=== PATIENT | female | born 1940 | race Caucasian/White ===

== ENCOUNTER 2020-07-27 08:29 | Day surgery (SDC) | payer OTHER ==
[~2020-07-27 08:29] MED LIST: ASPI81EC PO; ATEN50 PO; CALCIUM PO; LISI20 PO; NAPROXEN PO; POTCHL20ER PO; TYLENOL ARTHRITIS PO; VIT D PO
== END 2020-07-27 22:57 | disposition home or self-care (01) ==
LOC: MOI US 08:29 → MOI MAM 09:00 → MOI US 22:57
DX: C50.912 Malignant neoplasm of unspecified site of left female breast (principal); Z17.0 Estrogen receptor positive status [ER+]; Z79.82 Long term (current) use of aspirin; Z79.899 Other long term (current) drug therapy
CPT/HCPCS: 19083; 77065; 88305; 88342; 88360; A4648

== ENCOUNTER 2020-08-13 07:42 | Observation (INO) | payer OTHER ==
[~2020-08-13] VITALS: Ht 157.5 cm; Wt 101.4 kg
[~2020-08-13 07:42] MED LIST changes: +ASPI81CH PO; -ASPI81EC PO; +CALCIUM 600 +1 EA11 PO; +FOLI1; +FURO40 PO; +LEVSOD25 PO; +LOSA50 PO; +METO100ER PO; +ROSU10TA PO; +VITAMIN D310 MC4 PO
[2020-08-13] MEDS ORDERED: VENL75ER PO (08:12)
--- NOTE | 2020-08-13 08:41 | NUR ---
Ambulatory in Day Surgery. Surgical site prepped with 2% Chlorhexidine cloth wipe. [place] warming gown applied. History, Chart, Medications and Allergies reviewed before start of procedure.Lungs clear T/O to Auscultation. Patient confirms NPO status and agrees with scheduled surgery. Pre-Op teaching done. Pt verbalizes understanding. Patient States Post-Procedure ride home has been arranged. Patient reports completing Chlorhexadine shower X2 prior to admission to hospital.
--- NOTE | 2020-08-13 13:29 | NUR ---
AWAKE, EATING LUNCH, TOLERATING WELL, DENIES ANY PAIN, NAUSEA OR ANY DISCOMFORT AT THIS TIME, STATES "I'M FEELING PRETTY GOOD" DISCUSSED DRESSING AND WILBER DRAIN CARE.
--- NOTE | 2020-08-13 18:12 | NUR ---
DENIES ANY PAIN, OOB TO VOID, DSG C/D/I, TOLERATING REGULAR DIET WELL, WILBER CONT. TO HAVE SANGUINOUS-SERSANGUINOUS DRAINAGE, NO ACUTE CHANGES THIS SHIFT.
--- NOTE | 2020-08-14 06:18 | NUR ---
POD 1 S/P LEFT MASTECTOMY. PT VSS T/O NIGHT. DRESSING CDI, NO SIG BRIOSING/SWELLING NOTED. WILBER PUT OUT APPX 80 ML DARK PINK SSS DRNG. PAIN MGD W/1 NORCO W/REP RELIEF. PT ALTAGRACIA REG PO, NO N/V, IS VOIDING E/O DIFFICULTY. PT UP INDEP IN ROOM, ALTAGRACIA WELL. PLAN FOR DAUGHTER TO COME IN FOR WILBER DRAIN TEACHING PRIOR TO D/C.
[2020-08-14] MEDS ORDERED: HYDR1TAB94 PO (09:32)
--- NOTE | 2020-08-14 10:52 | NUR ---
1040 DISCHARGE INSTRUCTIONS REVIEWED WITH PATIENT AND HER DAUGHTER. PTS DUGHTER ABLE TO EMPTY DRAIN INDEPENDENTLY AND RECORD OUTPUT. PT AMBULATING INROOM, PAIN CONTROLLED, ALTAGRACIA PO FOOD AND FLUIDS WITHOUT NAUSEA. DISCHARGED TO HOME WITH HER DAUGHTER
== END 2020-08-14 10:40 | disposition home or self-care (01) ==
LOC: ORSCMMR 07:42 → ORD 09:00 → ORSCMMR 09:00 → SURS 11:10 → ORSCMMR 11:10 → SURS 11:56
PROVIDERS: ADMIT Surgery
DX: C50.412 Malignant neoplasm of upper-outer quadrant of left female breast (principal); I10 Essential (primary) hypertension; E03.9 Hypothyroidism, unspecified; Z17.0 Estrogen receptor positive status [ER+]; Z91.048 Other nonmedicinal substance allergy status; Z92.21 Personal history of antineoplastic chemotherapy; Z92.3 Personal history of irradiation; Z79.82 Long term (current) use of aspirin; Z79.899 Other long term (current) drug therapy
CPT/HCPCS: 88307; A9270; G0378; J0690; J1100; J2250; J2405; J2704; J3010; J7120

== ENCOUNTER 2024-11-15 14:41 | Observation (INO) | payer OTHER ==
[~2024-11-15] VITALS: Ht 167.6 cm; Wt 97.8 kg
[~2024-11-15 14:41] MED LIST changes: +HYDR1TAB94 PO; +VENL75ER PO
[2024-11-15 15:07] LABS: BASOPHILS ABSOLUTE AUTO 0.03 K/mm3 (0.00-0.23); BASOPHILS PERCENT AUTO 0 % (0-2); EOSINOPHILS ABSOLUTE AUTO 0.19 K/mm3 (0.00-0.68); EOSINOPHILS PERCENT AUTO 3 % (0-6); Hematocrit 35.6 % (33.0-51.0); Hemoglobin 11.9 g/dL (11.5-16.0); IMMATURE GRAN ABSOLUTE AUTO 0.05 K/mm3 (0.00-0.10); IMMATURE GRAN PERCENT AUTO 1 % (0-1); LYMPHOCYTES ABSOLUTE AUTO 1.57 K/mm3 (0.84-5.20); LYMPHOCYTES PERCENT AUTO 23 % (21-46); MONOCYTES ABSOLUTE AUTO 0.95 K/mm3 (0.16-1.47); MONOCYTES PERCENT AUTO 14 % (4-13); Mean Corpuscular HGB 32.8 pg (26.0-34.0); Mean Corpuscular HGB Conc 33.4 g/dL (31.5-36.5); Mean Corpuscular Volume 98 fL (80-100); Mean Platelet Volume 9.8 fL (9.1-12.4); NEUTROPHILS ABSOLUTE AUTO 3.93 K/mm3 (1.96-9.15); NEUTROPHILS PERCENT AUTO 59 % (41-73); Platelet Count 152 K/mm3 (150-400); RDW Standard Deviation 46.6 fL (35.1-46.3); Red Blood Cell Count 3.63 M/mm3 (3.80-5.20); White Blood Cell Count 6.72 K/mm3 (4.00-11.30)
[2024-11-15 15:23] LABS: Albumin, Blood 3.4 g/dL (3.4-5.0); Bilirubin, Total 0.6 mg/dL (0.1-1.0); Bun/Creatinine Ratio 17.5 (12.0-20.0); Calcium, Blood 8.5 mg/dL (8.5-10.1); Creatinine, Blood 1.14 mg/dL (0.40-1.00); Globulin, Blood 3.5 g/dL (2.2-4.0); Potassium, Blood 3.7 mmol/L (3.5-5.5); Total Protein, Blood 6.9 g/dL (6.4-8.2)
[2024-11-15] MEDS ORDERED: Ondansetron HCl 2 MG / ML 2ML Vial IV PRN (18:05)
[2024-11-15 18:50] VITALS: BP 157/130
[2024-11-15] MEDS ORDERED: FOSAMAX70 MG PO (19:25)
[2024-11-15] MEDS ORDERED: ROSUVASTATIN CA10 MG PO (19:29)
[2024-11-15] MEDS ORDERED: IBUP600 PO (19:30)
[2024-11-15 19:44] VITALS: BP 167/85
[2024-11-15 21:24] VITALS: BP 171/75
[2024-11-15] MEDS ORDERED: HydrALAZINE HCl 25 MG Tab PO ONE (21:50)
[2024-11-15 23:49] VITALS: BP 139/75
[2024-11-16 03:04] VITALS: BP 171/80
[2024-11-16 04:28] LABS: Hematocrit 34.8 % (33.0-51.0); Hemoglobin 11.6 g/dL (11.5-16.0); Mean Corpuscular HGB 32.9 pg (26.0-34.0); Mean Corpuscular HGB Conc 33.3 g/dL (31.5-36.5); Mean Corpuscular Volume 99 fL (80-100); Platelet Count 137 K/mm3 (150-400); RDW Coefficient Variation 13.2 % (11.7-14.2); RDW Standard Deviation 46.5 fL (35.1-46.3); Red Blood Cell Count 3.53 M/mm3 (3.80-5.20); White Blood Cell Count 5.24 K/mm3 (4.00-11.30)
[2024-11-16] MEDS ORDERED: HydrALAZINE HCl 20 MG / ML 1ML Vial IV PRN (04:45)
[2024-11-16 04:51] LABS: Bun/Creatinine Ratio 14.8 (12.0-20.0); Calcium, Blood 8.4 mg/dL (8.5-10.1); Creatinine, Blood 1.15 mg/dL (0.40-1.00); Magnesium, Blood 1.8 mg/dL (1.6-2.4); Potassium, Blood 3.3 mmol/L (3.5-5.5)
--- NOTE | 2024-11-16 05:09 | NUR ---
SHIFT SUMMARY THIS RN ASSUMED CARE OF PATIENT AT 1900. PT ARRIVED IN UNIT PRIOR TO SHIFT CHANGE. PT A&O X3-4, UNSURE OF SPECIFIC DATE BUT KNOWS MONTH/YEAR. ANSWERING ALL OTHER QUESTIONS APPROPRIATELY. PT AND DAUGHTER REPORT FORGETFULNESS AND POOR SHORT TERM MEMORY. BED ALARM USED T/O THIS SHIFT WITH PT SETTING OFF ALARM SEVERAL TIMES. HTN NOTED; MEDICATED PER EMAR AND MD ORDERS. SR ON MONITOR. DYSPNEA NOTED WITH EXERTION. ON RA. USING CANE TO AMBULATE WITH 1P SBA TO BATHROOM. BED IN LOWEST POSITION AND CALL LIGHT WITHIN REACH. [facility]
[2024-11-16 05:55] VITALS: BP 137/74
[2024-11-16] MEDS ORDERED: Levothyroxine Sodium 0.025 MG Tab PO SCH (06:00)
[2024-11-16 07:40] VITALS: BP 149/77
--- NOTE | 2024-11-16 07:52 | NUR ---
AM NOTE PT ALERT, ORIENTED X4; CALM AND COOPERATIVE WITH CARE. PT UP IN CHAIR WITH SBA AND CANE. PT DENIES PAIN, CHEST PAIN/PRESSURE, NAUSEA, DIZZINESS AND NUMB/TINGLING. PT SOB WITH EXERTION, SPO2 >94% ON RA, BREATHING EVEN AND UNLABORED, LS DIM T/O. TELE SINUS 60'S, BP ELEVATED. EDEMA NOTED TO BLE. ABD SOFT, NONTENDER, +BT. SCATTERED SCABS AND BRUISING NOTED. OTHER VSS. CALL LIGHT WITHIN REACH.
[2024-11-16] MEDS ORDERED: Furosemide 40 MG Tab PO SCH (09:00)
[2024-11-16] MEDS ORDERED: Aspirin 81 MG Chew PO SCH (09:00)
[2024-11-16] MEDS ORDERED: Atorvastatin 40 MG Tab PO SCH (09:00)
[2024-11-16] MEDS ORDERED: Enoxaparin 40 MG/0.4 ML SYR SC SCH (09:00)
[2024-11-16] MEDS ORDERED: Furosemide 10 MG/ML 4ML Vial IV ONE (09:00)
[2024-11-16] MEDS ORDERED: Metoprolol Succinate 50 MG TABCR PO SCH (09:00)
[2024-11-16] MEDS ORDERED: Losartan Potassium 50 MG Tab PO SCH (09:00)
[2024-11-16] MEDS ORDERED: Potassium Chloride 20 MEQ TabCR PO ONE (09:00)
[2024-11-16 12:10] VITALS: BP 137/73
[2024-11-16] MEDS ORDERED: Hydrocortisone 2.5% Cream 30 GM Tube TOP SCH (14:00)
[2024-11-16] MEDS ORDERED: Hydrocortisone 2.5% Cream 30 gm Tube XX SCH (14:00)
[2024-11-16 15:30] VITALS: BP 156/90
--- NOTE | 2024-11-16 15:46 | NUR ---
Discharge Summary Pt BP elevated, pt reports feeling anxious to leave. Other vss. No other acute changes noted. Daughter at bedside. Educated patient on discharge instructions, follow up appointments and physical therapy. No changes nto medications at this time. Pt left via wheelchair at 1539 with daughter.
== END 2024-11-16 15:39 | disposition home or self-care (01) ==
LOC: ER 14:41 → ERHOLD 14:42 → PCU 14:42 → ER 17:20 → PCU 18:46
PROVIDERS: Nurse Practitioner Acute Care; Student in an Organized Health Care Education/Training Program; ADMIT Internal Medicine
DX: R06.00 Dyspnea, unspecified (principal); R53.1 Weakness; R42 Dizziness and giddiness; I51.7 Cardiomegaly; I12.9 Hypertensive chronic kidney disease with stage 1 through stage 4 chronic kidney disease, or unspecified chronic kidney disease; N18.30 Chronic kidney disease, stage 3 unspecified; E03.9 Hypothyroidism, unspecified; E78.5 Hyperlipidemia, unspecified; Z85.3 Personal history of malignant neoplasm of breast; Z79.890 Hormone replacement therapy; Z79.82 Long term (current) use of aspirin; Z79.899 Other long term (current) drug therapy; I47.10 Supraventricular tachycardia, unspecified
CPT/HCPCS: 36415; 71046; 71260; 80048; 80053; 83735; 83880; 84443; 84484; 85025; 85027; 93005; 93010; 93306; 96372; 96374; 96375; 97116; 97161; 99285-25; A9270; G0378; J0360; J1650; J1938; J1940; Q9967